=== PATIENT | male | born 1935 | race Caucasian/White ===

== ENCOUNTER 2017-01-18 18:10 | Emergency (ER) | payer MEDICARE, OTHER | END 2017-01-18 21:02 | disposition home or self-care (01) | LOC: ER 18:10 | DX: R31.9 Hematuria, unspecified (principal); I10 Essential (primary) hypertension; N40.0 Benign prostatic hyperplasia without lower urinary tract symptoms; F17.290 Nicotine dependence, other tobacco product, uncomplicated; Z79.899 Other long term (current) drug therapy; Z88.0 Allergy status to penicillin; Z88.1 Allergy status to other antibiotic agents; Z88.2 Allergy status to sulfonamides | CPT/HCPCS: 36415; 51702 ==